=== PATIENT | male | born 1960 | race Caucasian/White ===

== ENCOUNTER 2023-01-22 15:30 | Inpatient (IN) | payer OTHER ==
[2023-01-22] MEDS ORDERED: SODIUM CHLORIDE 0.9% 500 ML INFUS.BAG IV ONE (15:47)
[2023-01-22] MEDS ORDERED: MAG HYDROX/AL HYDROX/SIMETH 30 ML UNIT-DOSE CUP PO ONE (15:47)
[2023-01-22] MEDS ORDERED: FAMOTIDINE 20 MG/50 ML IVPB 20 MG/50 ML MG IVPB ONE ×2 (15:47→15:56)
[2023-01-22] MEDS ORDERED: ACETAMINOPHEN 1000 MG/100 ML BAG IVPB ONE (15:47)
[2023-01-22] MEDS ORDERED: ONDANSETRON 4 MG/2 ML VIAL IVPUSH ONE (15:54)
[2023-01-22] MEDS ORDERED: ACETAMINOPHEN INJECTION 100 ML IVPB ONE (15:56)
[2023-01-22] MEDS ORDERED: MAG HYDROX/AL HYDROX/SIMETH 30 ML UNIT-DOSE CUP ONE (15:57)
[2023-01-22 16:34] LABS: HEMATOCRIT 56.3 % (35.4-49); HEMOGLOBIN 18.6 G/dL (11.7-16.9); MCH 29.8 pg (25.7-33.7); MCHC 33.1 g/dl (32.0-35.9); MEAN CELL VOLUME 89.9 fl (80-96); MEAN PLT VOLUME 9.7 fl (7.5-11.1); PLATELET COUNT 194.9 10^3/uL (134-434); RBC 6.26 10^6/uL (4.00-5.60); RDW 15.1 % (11.9-15.9); WHITE BLOOD COUNT 14.1 10^3/uL (4.0-10.8)
[2023-01-22 16:53] LABS: INR 1.06 (0.83-1.09); PROTHROMBIN TIME (PATIENT) 12.3 SEC (9.7-13.0)
[2023-01-22 16:56] LABS: ACTIVATED PTT 29.1 SECONDS (25.2-36.5)
[2023-01-22 17:24] LABS: PLATELET ESTIMATE ADEQUATE
[2023-01-22 17:30] LABS: ALBUMIN 4.5 g/dl (3.4-5.0); BILIRUBIN,TOTAL 2.1 mg/dl (0.2-1); CALCIUM 9.4 mg/dl (8.5-10.1); CREATININE 1.5 mg/dl (0.6-1.3); POTASSIUM 3.5 mmol/L (3.5-5.1); TOT PROT 7.4 g/dl (6.4-8.2)
[2023-01-22] MEDS ORDERED: morphine CARPU-JECT 4 MG/1 ML DISP.SYRIN IVPUSH ONE (18:52)
[2023-01-22] MEDS ORDERED: morphine SULFATE 4 MG/ML VIAL ONE (18:59)
[2023-01-22] MEDS ORDERED: CEFEPIME HCL 2 GM VIAL (RESTRICTED TO ID) IVPB ONE (20:47)
[2023-01-22 21:28] LABS: INR 1.13 (0.83-1.09); PROTHROMBIN TIME (PATIENT) 13.1 SEC (9.7-13.0)
[2023-01-22 21:30] LABS: ACTIVATED PTT 25.3 SECONDS (25.2-36.5)
[2023-01-22] MEDS ORDERED: CEFEPIME HCL/D5W 2 GM/50 ML BAG IVPB ONE (21:41)
[2023-01-22] MEDS ORDERED: morphine SULFATE 4 MG/ML VIAL IVPUSH PRN (23:27)
[2023-01-22] MEDS ORDERED: ONDANSETRON 4 MG/2 ML VIAL IVPUSH PRN (23:35)
[2023-01-23] MEDS: DEXTROSE 5%-0.45% SALINE 1,000 ML IV SCH ×2 (00:29→21:58)
[2023-01-23] MEDS ORDERED: ACETAMINOPHEN INJECTION 100 ML IVPB ONE (01:52)
[2023-01-23] MEDS ORDERED: ACETAMINOPHEN 1000 MG/100 ML BAG IVPB ONE (01:52)
[2023-01-23] MEDS ORDERED: CEFEPIME 2 GM in DEXTROSE 5%-WATER 100 ML IVPB SCH ×2 (02:00→08:00)
[2023-01-23 02:47] LABS: EPI CELLS 3 /uL (0-25.1); HYALINE CASTS 0 /uL (0-3.1); URINE APPEARANCE CLEAR; URINE BACTERIA 5 /uL (0-1359); URINE BILIRUBIN NEGATIVE (NEGATIVE); URINE COLOR YELLOW; URINE GLUCOSE (UA) NEGATIVE (NEGATIVE); URINE KETONE NEGATIVE (NEGATIVE); URINE LEUK ESTERASE NEGATIVE (NEGATIVE); URINE NITRITE NEGATIVE (NEGATIVE); URINE PROTEIN 1+ (NEGATIVE); URINE RBC 19 /uL (0-23.9); URINE WBC 3 /uL (0-25.8)
[2023-01-23 04:51] VITALS: BMI 33.7
[2023-01-23] MEDS ORDERED: ACETAMINOPHEN 1000 MG/100 ML BAG IVPB PRN (08:32)
[2023-01-23] MEDS: PANTOPRAZOLE SODIUM 40 MG VIAL IVPUSH SCH (09:26)
[2023-01-23 11:18] LABS: BASO % 0.6 % (0-2.0); EOS % 0.6 % (0-4.5); HEMATOCRIT 46.1 % (35.4-49); HEMOGLOBIN 14.8 GM/dL (11.7-16.9); LYMPH % 11.4 % (8-40); MCH 28.7 pg (25.7-33.7); MCHC 32.1 g/dl (32.0-35.9); MEAN CELL VOLUME 89.4 fl (80-96); MEAN PLT VOLUME 9.2 fl (7.5-11.1); MONO % 6.1 % (3.8-10.2); NEUT % 81.3 % (42.8-82.8); PLATELET COUNT 189 10^3/uL (134-434); RBC 5.16 M/mm3 (4.00-5.60); RDW 14.8 % (11.9-15.9); WHITE BLOOD COUNT 11.9 K/mm3 (4.0-10.0)
[2023-01-23 15:56] LABS: ERYTHROCYTE SEDIMENTATION RATE 3 mm/hr (0-20)
[2023-01-23 15:57] LABS: BILIRUBIN,DIRECT 0.2 mg/dL (0.0-0.2)
[2023-01-23] MEDS: CEFEPIME 2 GM in DEXTROSE 5%-WATER 100 ML IVPB SCH (17:47)
[2023-01-23 20:26] LABS: BLOOD UREA NITROGEN 18.4 mg/dL (7-18); CREATININE 1.5 mg/dL (0.55-1.3); POTASSIUM 3.8 mmol/L (3.5-5.1)
[2023-01-23 20:27] LABS: ALBUMIN 3.2 g/dl (3.4-5.0); BILIRUBIN,TOTAL 1.9 mg/dL (0.2-1); CALCIUM 7.9 mg/dL (8.5-10.1); TOT PROT 6.4 g/dl (6.4-8.2)
[2023-01-23] MEDS ORDERED: MELATONIN 5 MG TABLETS PO PRN (20:50)
[2023-01-23 23:38] LABS: MAGNESIUM 2.4 mg/dL (1.8-2.4); PHOSPHOROUS 2.4 mg/dL (2.5-4.9)
[2023-01-24 01:30] VITALS: RESP 18
[2023-01-24] MEDS: CEFEPIME 2 GM in DEXTROSE 5%-WATER 100 ML IVPB SCH ×3 (02:54→18:23)
[2023-01-24 07:45] LABS: HEMATOCRIT 47.3 % (35.4-49); HEMOGLOBIN 15.5 GM/dL (11.7-16.9); MCH 29.2 pg (25.7-33.7); MCHC 32.8 g/dl (32.0-35.9); MEAN CELL VOLUME 89.1 fl (80-96); MEAN PLT VOLUME 9.3 fl (7.5-11.1); PLATELET COUNT 176 10^3/uL (134-434); RDW 14.7 % (11.9-15.9); WHITE BLOOD COUNT 9.6 K/mm3 (4.0-10.0)
[2023-01-24 07:58] LABS: POTASSIUM 3.4 mmol/L (3.5-5.1)
[2023-01-24 08:05] LABS: ALBUMIN 3.1 g/dl (3.4-5.0); BLOOD UREA NITROGEN 14.9 mg/dL (7-18); MAGNESIUM 2.3 mg/dL (1.8-2.4)
[2023-01-24 08:08] LABS: CREATININE 1.3 mg/dL (0.55-1.3); PHOSPHOROUS 1.8 mg/dL (2.5-4.9)
[2023-01-24 08:09] LABS: BILIRUBIN,TOTAL 2.1 mg/dL (0.2-1)
[2023-01-24 08:10] LABS: TOT PROT 6.3 g/dl (6.4-8.2)
[2023-01-24] MEDS ORDERED: POTASSIUM CHLORIDE ORAL LIQUID 20 MEQ/15 ML PO ONE (08:10)
[2023-01-24] MEDS ORDERED: POTASSIUM PHOSPHATE 15 MM in SODIUM CHLORIDE 250 ML IVPB ONE (08:13)
[2023-01-24] MEDS ORDERED: POTASSIUM PHOSPHATE 30 MM in SODIUM CHLORIDE 500 ML IVPB ONE (09:30)
[2023-01-24] MEDS: PANTOPRAZOLE SODIUM 40 MG VIAL IVPUSH SCH (10:14)
[2023-01-24 10:49] LABS: ANISOCYTOSIS 0; HELMET CELLS 0; HOWELL-JOLLY BODIES 0; MACROCYTOSIS 0; OVALOCYTE 0; ROULEAU 0; SICKELED CELLS 0; TARGET CELLS 0; TEAR DROP CELLS 0; TOXIC GRANULATION 0
[2023-01-24] MEDS: DEXTROSE 5%-0.45% SALINE 1,000 ML IV SCH ×2 (11:15→23:30)
[2023-01-24] MEDS ORDERED: MELATONIN 5 MG TABLETS PO SCH (22:00)
[2023-01-25] MEDS: CEFEPIME 2 GM in DEXTROSE 5%-WATER 100 ML IVPB SCH ×2 (01:03→10:46)
[2023-01-25 07:41] LABS: BASO % 0.3 % (0-2.0); EOS % 2.8 % (0-4.5); HEMOGLOBIN 15.3 GM/dL (11.7-16.9); LYMPH % 24.6 % (8-40); MCHC 33.9 g/dl (32.0-35.9); MEAN CELL VOLUME 88.5 fl (80-96); MEAN PLT VOLUME 9.8 fl (7.5-11.1); MONO % 9.5 % (3.8-10.2); NEUT % 62.8 % (42.8-82.8); PLATELET COUNT 206 10^3/uL (134-434); RBC 5.08 M/mm3 (4.00-5.60); RDW 14.5 % (11.9-15.9)
[2023-01-25 07:49] LABS: POTASSIUM 3.5 mmol/L (3.5-5.1)
[2023-01-25 07:51] LABS: CALCIUM 7.7 mg/dL (8.5-10.1)
[2023-01-25 07:52] LABS: BLOOD UREA NITROGEN 10.8 mg/dL (7-18)
[2023-01-25 07:54] LABS: PHOSPHOROUS 2.3 mg/dL (2.5-4.9)
[2023-01-25 07:55] LABS: CREATININE 1.1 mg/dL (0.55-1.3)
[2023-01-25 07:56] LABS: BILIRUBIN,TOTAL 1.9 mg/dL (0.2-1); TOT PROT 6.1 g/dl (6.4-8.2)
[2023-01-25] MEDS ORDERED: amLODIPine BESYLATE 10 MG TABLET (FP) PO SCH (10:00)
[2023-01-25] MEDS ORDERED: LOSARTAN POTASSIUM 50 MG TABLET PO SCH (10:00)
[2023-01-25] MEDS ORDERED: NAPH,MB-DB/K PH,MBDB POWDER PACKET PO ONE ×2 (10:16→11:50)
[2023-01-25] MEDS: PANTOPRAZOLE SODIUM 40 MG VIAL IVPUSH SCH (10:45)
[2023-01-25 18:06] VITALS: BP 152/90; PULSE 67; TEMP 98
== END 2023-01-25 14:12 | disposition home or self-care (01) | DRG 394 ==
LOC: FER 15:30 → J4W 01-23 03:58
PROVIDERS: ADMIT Internal Medicine; ATTEND Internal Medicine
DX: K55.9 Vascular disorder of intestine, unspecified (principal); I24.89 Other forms of acute ischemic heart disease; N17.9 Acute kidney failure, unspecified; A08.8 Other specified intestinal infections; K21.9 Gastro-esophageal reflux disease without esophagitis; E86.0 Dehydration; J39.2 Other diseases of pharynx; K76.0 Fatty (change of) liver, not elsewhere classified; I12.9 Hypertensive chronic kidney disease with stage 1 through stage 4 chronic kidney disease, or unspecified chronic kidney disease; N18.32 Chronic kidney disease, stage 3b; R00.0 Tachycardia, unspecified; R79.89 Other specified abnormal findings of blood chemistry; D75.1 Secondary polycythemia; Z88.0 Allergy status to penicillin
CPT/HCPCS: 0241U-QW; 36415; 71045-TC-FY; 74177-TC; 76705-TC; 80053; 81003; 82248; 82550; 82553; 82728; 83516; 83540; 83550; 83605; 83690; 83735; 84100; 84484; 85025; 85610; 85651; 85730; 86038; 86140; 86704; 86803; 86850; 86900; 86901; 87040; 87045; 87046; 87086; 87205; 87209; 87340; 87517; 93005; 93010; 93308; 99285-25; Q9967